=== PATIENT | male | born 2000 | race African-American/Black ===

== ENCOUNTER → 2024-01-12 | Outpatient (CLI) | payer OTHER | LOC: M EKG 14:27 | DX: R07.9 Chest pain, unspecified (principal) ==

== ENCOUNTER 2024-04-20 09:12 | Emergency (ER) | payer OTHER ==
[~2024-04-20] VITALS: Ht 177.8 cm; Wt 124.9 kg
[2024-04-20] MEDS ORDERED: INSU100I26 (09:20)
[2024-04-20] MEDS ORDERED: FREETES12 (09:20)
[2024-04-20] MEDS ORDERED: BLOO-217 (09:20)
[2024-04-20] MEDS ORDERED: KETOROLAC 60MG 2ML VIAL IM ONE (11:20)
[2024-04-20 11:44] LABS: BASO % 0.4 % (0.0-1.0); EOS # 0.1 10^3/uL (0.0-0.5); EOS % 1.6 % (0.0-3.0); HEMATOCRIT 43.3 % (42.0-52.0); HEMOGLOBIN 14.9 g/dl (13.5-17.5); MEAN CORPUSCULAR HEMOGLOBIN 31.2 pg (27.0-33.0); MEAN CORPUSCULAR HGB CONC 34.4 g/dl (32.0-36.5); MEAN CORPUSCULAR VOLUME 90.8 fl (80.0-96.0); MONO # 0.5 10^3/uL (0.0-0.8); MONO % 7.6 % (2.0-8.0); NEUTROPHILS # 4.2 10^3/uL (1.5-8.5); NEUTROPHILS % 61.3 % (36.0-66.0); PLATELET COUNT, AUTOMATED 253 10^3/uL (150-450); RED BLOOD COUNT 4.77 10^6/uL (4.30-6.10); WHITE BLOOD COUNT 6.8 10^3/uL (4.0-10.0)
[2024-04-20 12:12] LABS: LIPASE 18 U/L (12-53)
[2024-04-20 12:14] LABS: ALBUMIN 3.6 G/DL (3.2-5.2); ALKALINE PHOSPHATASE 154 U/L (46-116); ALT/SGPT 89 U/L (7.0-40); AST/SGOT 77 U/L (<34); BILIRUBIN,DIRECT < 0.1 MG/DL (<0.4); BILIRUBIN,TOTAL 0.3 MG/DL (0.3-1.2); BLOOD UREA NITROGEN 13 MG/DL (9-23); CALCIUM LEVEL 9.5 MG/DL (8.5-10.1); CARBON DIOXIDE LEVEL 22 MMOL/L (20-31); CHLORIDE LEVEL 106 MMOL/L (98-107); CREATININE FOR GFR 0.72 MG/DL (0.70-1.30); GLOMERULAR FILTRATION RATE > 60.0 (>60); GLUCOSE, FASTING 77 MG/DL (60-100); POTASSIUM SERUM 4.6 MMOL/L (3.5-5.1); SODIUM LEVEL 136 MMOL/L (136-145); TOTAL PROTEIN 7.3 G/DL (5.7-8.2)
[2024-04-20] MEDS: KETOROLAC 30 MG/ML 1ML VIAL IV ONE (12:21)
[2024-04-20] MEDS: DEXTROSE 50% 50ML SYRINGE IV STA (12:30)
[2024-04-20] MEDS ORDERED: ISOVUE-370 76% 100ML VIAL As Ordered ONE (13:13)
[2024-04-20 14:23] VITALS: BP 137/82; TEMP 97.9; O2SAT 100
== END 2024-04-20 14:27 | disposition home or self-care (01) ==
LOC: M ED 09:12
DX: R10.84 Generalized abdominal pain (principal); K76.0 Fatty (change of) liver, not elsewhere classified; R74.01 Elevation of levels of liver transaminase levels; E10.9 Type 1 diabetes mellitus without complications; Z88.0 Allergy status to penicillin; Z79.899 Other long term (current) drug therapy
CPT/HCPCS: 74177; 80048; 80076; 83690; 85025; 86140; 96374; 96375; 99284; J1885; Q9967

== ENCOUNTER 2024-05-04 10:54 | Emergency (ER) | payer OTHER ==
[~2024-05-04] VITALS: Ht 177.8 cm; Wt 131.4 kg
[~2024-05-04 10:54] MED LIST: BLOO-217; FREETES12; INSU100I26
[2024-05-04] MEDS ORDERED: LANTINJ4 (12:05)
[2024-05-04 12:42] LABS: HEMOGLOBIN A1c 8.9 % (4.0-6.0)
[2024-05-04 12:49] LABS: LIPASE 19 U/L (12-53)
[2024-05-04 12:51] LABS: ACETONE/KETONE 0.08 MMOL/L (0.02-0.27); ALBUMIN 3.8 G/DL (3.2-5.2); ALKALINE PHOSPHATASE 127 U/L (46-116); ALT/SGPT 70 U/L (7.0-40); AST/SGOT 31 U/L (<34); BILIRUBIN,DIRECT 0.1 MG/DL (<0.4); BILIRUBIN,TOTAL 0.4 MG/DL (0.3-1.2); BLOOD UREA NITROGEN 18 MG/DL (9-23); CALCIUM LEVEL 9.6 MG/DL (8.5-10.1); CARBON DIOXIDE LEVEL 24 MMOL/L (20-31); CHLORIDE LEVEL 105 MMOL/L (98-107); CK-MB VALUE MASS 1.7 NG/ML (<3.6); CREATININE FOR GFR 0.72 MG/DL (0.70-1.30); GLOMERULAR FILTRATION RATE > 60.0 (>60); GLUCOSE, FASTING 172 MG/DL (60-100); MAGNESIUM LEVEL 1.7 MG/DL (1.8-2.4); PHOSPHORUS LEVEL 2.7 MG/DL (2.5-4.9); POTASSIUM SERUM 4.3 MMOL/L (3.5-5.1); SODIUM LEVEL 136 MMOL/L (136-145); TOTAL PROTEIN 7.8 G/DL (5.7-8.2)
[2024-05-04 13:40] LABS: OSMOLALITY SERUM 304 MOSM/KG (275-295)
[2024-05-04 13:44] LABS: MONO REFLEX EBV COMP NEGATIVE (NEGATIVE)
[2024-05-04 14:04] LABS: BASO % 0.4 % (0.0-1.0); EOS # 0.1 10^3/uL (0.0-0.5); EOS % 1.9 % (0.0-3.0); HEMATOCRIT 45.7 % (42.0-52.0); HEMOGLOBIN 15.8 g/dl (13.5-17.5); LYMPH # 1.5 10^3/uL (1.5-5.0); LYMPH % 21.5 % (24.0-44.0); MEAN CORPUSCULAR HEMOGLOBIN 31.2 pg (27.0-33.0); MEAN CORPUSCULAR HGB CONC 34.6 g/dl (32.0-36.5); MEAN CORPUSCULAR VOLUME 90.1 fl (80.0-96.0); MONO # 0.4 10^3/uL (0.0-0.8); MONO % 6.3 % (2.0-8.0); NEUTROPHILS # 4.7 10^3/uL (1.5-8.5); PLATELET COUNT, AUTOMATED 282 10^3/uL (150-450); RED BLOOD COUNT 5.07 10^6/uL (4.30-6.10); WHITE BLOOD COUNT 6.8 10^3/uL (4.0-10.0)
[2024-05-04 14:09] LABS: HEPATITIS B SURFACE ANTIGEN NEGATIVE (NEGATIVE)
[2024-05-04 14:30] LABS: HEPATITIS C VIRUS ABY INDEX 0.03 INDEX (<0.8)
[2024-05-04 14:31] LABS: HEPATITIS B CORE ANTIBODY IGM NEGATIVE (NEGATIVE)
[2024-05-04 14:40] LABS: CPK CREATINE PHOSPHOKINASE 195 U/L (46-171); MB/CK RELATIVE INDEX 0.87 (< OR =4)
[2024-05-04] MEDS: NS 1,000 ML IV ONE (15:10)
[2024-05-04 15:40] LABS: CK-MB VALUE MASS 2.4 NG/ML (<3.6)
[2024-05-04 15:42] LABS: MB/CK RELATIVE INDEX 1.12 (< OR =4)
[2024-05-04 17:26] VITALS: BP 138/94; TEMP 97.2; O2SAT 99
[2024-05-05 15:02] LABS: EBV VIRAL CAPSID AG IGM < 36.00 U/mL (<36.00)
== END 2024-05-04 17:30 | disposition home or self-care (01) ==
LOC: M ED 10:54
DX: R11.2 Nausea with vomiting, unspecified (principal); E10.69 Type 1 diabetes mellitus with other specified complication; E87.0 Hyperosmolality and hypernatremia; K76.0 Fatty (change of) liver, not elsewhere classified; Z88.0 Allergy status to penicillin; Z79.899 Other long term (current) drug therapy

== ENCOUNTER 2025-04-19 16:37 | Emergency (ER) | payer OTHER ==
[~2025-04-19] VITALS: Ht 177.8 cm; Wt 144.5 kg
[~2025-04-19 16:37] MED LIST changes: -INSU100I26; +INSU100I26 SC; +LANTINJ4 SC; +OMEP40CA4 PO
[2025-04-19 16:51] VITALS: TEMP 97
[2025-04-19] MEDS ORDERED: MORPHINE 2 MG/ML 1 ML VIAL IV PRN (16:55)
[2025-04-19 18:07] VITALS: BP 141/71; O2SAT 98
[2025-04-19] MEDS ORDERED: ISOVUE-370 76% 100 ML VIAL As Ordered ONE (18:18)
[2025-04-19 18:27] LABS: BASO # 0.0 10^3/uL (0.0-0.2); BASO % 0.4 % (0.0-1.0); EOS # 0.1 10^3/uL (0.0-0.5); EOS % 1.9 % (0.0-3.0); LYMPH # 1.5 10^3/uL (1.5-5.0); LYMPH % 21.5 % (24.0-44.0); MONO # 0.5 10^3/uL (0.0-0.8); MONO % 7.7 % (2.0-8.0); NEUTROPHILS # 4.7 10^3/uL (1.5-8.5); NEUTROPHILS % 68.1 % (36.0-66.0); PLATELET COUNT, AUTOMATED 245 10^3/uL (150-450)
[2025-04-19 19:03] LABS: ALT/SGPT 418 U/L (7.0-40); AST/SGOT 311 U/L (<34); CALCIUM LEVEL 8.9 MG/DL (8.5-10.1); CARBON DIOXIDE LEVEL 25 MMOL/L (20-31); CHLORIDE LEVEL 102 MMOL/L (98-107); CK-MB VALUE MASS 4.5 NG/ML (<3.6); CPK CREATINE PHOSPHOKINASE 4321 U/L (46-171); CREATININE FOR GFR 0.72 MG/DL (0.70-1.30); GLOMERULAR FILTRATION RATE > 90.0 (>60); MB/CK RELATIVE INDEX 0.10 (< OR =4); POTASSIUM SERUM 5.6 MMOL/L (3.5-5.1); SODIUM LEVEL 136 MMOL/L (136-145)
[2025-04-19] MEDS: NS (Normal Saline) 0.9% 1,000 ML IV ONE (19:20)
[2025-04-19 19:22] LABS: INR 0.91
[2025-04-19] MEDS ORDERED: PERC5TAB12 PO (19:40)
[2025-04-19] MEDS: OXYCODONE/APAP 5MG/325MG(HOME DOSE PACK) PO ONE (19:58)
== END 2025-04-19 20:19 | disposition left against medical advice (07) ==
LOC: M ED 16:37 → EDBD 16:37 → M ED 20:19
DX: M62.82 Rhabdomyolysis (principal); V49.50XA Passenger injured in collision with unspecified motor vehicles in traffic accident, initial encounter; K76.0 Fatty (change of) liver, not elsewhere classified; E11.9 Type 2 diabetes mellitus without complications; Z88.0 Allergy status to penicillin; Z79.4 Long term (current) use of insulin; Z79.899 Other long term (current) drug therapy; Y92.410 Unspecified street and highway as the place of occurrence of the external cause; Y93.89 Activity, other specified; Y99.9 Unspecified external cause status; Z53.9 Procedure and treatment not carried out, unspecified reason
CPT/HCPCS: 36415; 70450; 70486; 71260; 72125; 72128; 72131; 74177; 80047; 80048; 80076; 82150; 82550; 82553; 83605; 83690; 84484; 85025; 85610; 85730; 86850; 86900; 86901; 93041; 94760; 99284; Q9967